=== PATIENT | female | born 1965 | race Caucasian/White ===

== ENCOUNTER 2017-06-10 02:57 | Emergency (ER) | payer BC ==
[~2017-06-10] VITALS: Ht 162.6 cm; Wt 72.6 kg
--- NOTE | ~2017-06-10 | CT122 ---
[facility] A Service of [facility] RADIOLOGY TEXT RESULTS PATIENT: GENIE PATINO LOCATION: SED : 67 UNIT #: [id number] AGE: [address]: Anjum Cruz MD SEX: F ORDER DR: [id number] [address] [id number] E MR#: [id number] Acc #: [id number] NAME: GEINE PATINO : 1965 SEX: F STUDY DATE/TIME: 06/10/2017 03:34 UNIT: SED ROOM: STUDY DESCRIPTION: CT Thoracic Spine Wo Cont Attending Physician: Anjum Cruz M.D. Ordering Physician: Anjum Cruz M.D. MEDICAL IMAGING REPORT This report is preliminary unless electronic signature is present. EXAM Thoracic spine CT 06/10/17. HISTORY Upper back pain and shortness of air for 3 hours after bending over a dumpster. No trauma. TECHNIQUE Axial images were obtained through the thoracic spine without contrast. Multiplanar reformats were obtained. No comparison. This CT exam was performed with one or more of the following radiation dose reduction techniques: automatic exposure control, adjustment of mA and/or kV according to patient size, and iterative reconstruction. FINDINGS No fracture or subluxation is identified. There are disc bulge is noted, predominately at T9-10 and T8-9. There are not causing a significant degree of stenosis. They could be further assessed with outpatient thoracic MR. Incidental note is made of atelectasis in both lungs. There is emphysema as well. IMPRESSION No fracture or malalignment. There are disc bulges predominately at T8-9 and T9-10, without significant central canal or foraminal narrowing. These could be better assessed with outpatient MRI if indicated. Note is also made of emphysema with atelectasis in both lungs. Dictated by... Andres Baptiste Jr., M.D. [facility] A Service of [facility] RADIOLOGY TEXT RESULTS PATIENT: GENIE PATINO LOCATION: SED : 67 UNIT #: [id number] AGE: [address]: Anjum Cruz MD SEX: F ORDER DR: THIS IS AN ELECTRONICALLY VERIFIED REPORT Andres Baptiste Jr., M.D. at 06/11/2017 4:57 AM Armen TD: 06/10/2017 23:13 JOB #: [id number] MEDICAL IMAGING REPORT Page 1 of 1
[2017-06-10] MEDS ORDERED: DESYREL50 MG (03:04)
[2017-06-10] MEDS ORDERED: NEURONTIN600 MG (03:04)
[2017-06-10] MEDS ORDERED: DULOXETINE HCL60 MG (03:04)
== END 2017-06-10 05:06 | disposition home or self-care (01) ==
LOC: SED 02:57
DX: S29.012A Strain of muscle and tendon of back wall of thorax, initial encounter (principal); J44.9 Chronic obstructive pulmonary disease, unspecified; F17.200 Nicotine dependence, unspecified, uncomplicated; Z88.8 Allergy status to other drugs, medicaments and biological substances; X58.XXXA Exposure to other specified factors, initial encounter; Y92.89 Other specified places as the place of occurrence of the external cause
CPT/HCPCS: 72128; 99284